=== PATIENT | female | born 1990 | race African-American/Black ===

== ENCOUNTER 2017-04-20 09:48 | Emergency (ER) | payer OTHER ==
[~2017-04-20] VITALS: Ht 160 cm; Wt 63.5 kg
[~2017-04-20 09:48] MED LIST: AZIT250T PO; CYCL10TA9 PO; DOXY-233 PO; DOXY100C42 PO; FAMO-119 PO; FRS325T PO; HYDR-1231 PO; HYDR-3714 PO; HYDR-757 PO; HYDR50TA76 PO; IBP600T1 PO; METR500T PO; NAPR-243 PO; NAPR500T4 PO; PENI500T PO; PRD20T PO; PRED-501 PO; TRAM50TA2 PO; TRM50T PO
--- OUTSIDE RECORDS SUMMARY | 2017-04-20 09:54 | XMS REPORT ---
Author ILEANA Peguero [facility] eClinicalWorks Address Unknown Phone Unavailable Care Team Providers Care Switchboard Wire Worker Helper Name Role Phone ILEANA BOYCE CP Unavailable Allergies, Adverse Reactions, Alerts Substance Reaction Event Type N.K.D.A. Info Not Available Non Drug Allergy Problems Problem Type Condition Code Onset Dates Condition Status Problem Screening for malignant neoplasm of the cervix V76.2 Active Problem Screening examination for venereal disease V74.5 Active Problem Special screening examination, human papillomavirus [HPV] V73.81 Active Problem Foreign body in nose 932 Active Assessment Chest pain, unspecified R07.9 Active Problem Unspecified vaginitis and vulvovaginitis 616.10 Active Problem Abdominal pain, generalized 789.07 Active Medications Medication Code System Code Instructions Start Date End Date Status Dosage Ibuprofen [facility] [address]-06 800 MG Orally Three times a day 1 tablet Iron [facility] [address]-62 325 mg (65 mg iron) June 27, 2013 1 Tablet 1 time per day PredniSONE [facility] [address]-62 10 MG Orally Once a day Jan 25, 2015 Jan 30, 2015 1 tablet with food or milk Cyclobenzaprine HCl [facility] [address]-36 10 MG Orally Three times a day as needed for chest tightness and pain Jan 25, 2015 Feb 08, 2015 1 tablet Procedures Procedure Coding System Code Date Office Visit, Est Pt., Level 3 CPT-4 18823 Jan 25, 2015 ELECTROCARDIOGRAM, TRACING CPT-4 87316 Jan 25, 2015 Vital Signs Date/Time: Jan 25, 2015 Temperature 97.9 F Weight 132.4 lbs Height 71 in BMI 18.46 Index Blood Pressure Diastolic 72 mmHg Blood Pressure Systolic 130 mmHg Cardiac Monitoring Heart Rate 80 bpm Results Name Result Date Reference Range Unit Abnormality Flag EKG, TRACING (IN-HOUSE) Summary Purpose eClinicalWorks Submission
--- OUTSIDE RECORDS SUMMARY | 2017-04-20 09:54 | XMS REPORT ---
Author Author VASYL KLEIN [facility] eClinicalWorks Address Unknown Phone Unavailable Care Team Providers Care Overlock Operator Name Role Phone VASYL KLEIN Unavailable Allergies No Known Allergies Problems Problem Type Condition Code Onset Dates Condition Status Problem Abdominal pain, generalized R10.84 Active Medications Medication Code System Code Instructions Start Date End Date Status Dosage Diflucan [facility] [address]-82 150 MG Orally Once a day Apr 16, 2015 1 tablet Results No Known Results Summary Purpose eClinicalWorks Submission
--- OUTSIDE RECORDS SUMMARY | 2017-04-20 09:55 | XMS REPORT ---
Author Author VASYL KLEIN [facility] eClinicalWorks Address Unknown Phone Unavailable Care Team Providers Care Bias Binding Cutter Name Role Phone VASYL KLEIN Unavailable Allergies, Adverse Reactions, Alerts Substance Reaction Event Type N.K.D.A. Info Not Available Non Drug Allergy Problems Problem Type Condition Code Onset Dates Condition Status Assessment Pelvic pressure in female N94.89 Active Assessment Routine screening for STI (sexually transmitted infection) Z11.3 Active Assessment Dyspareunia N94.1 Active Assessment Encounter for screening for malignant neoplasm of cervix Z12.4 Active Assessment Well woman exam Z01.419 Active Problem Abdominal pain, generalized R10.84 Active Assessment History of right oophorectomy Z98.89 Active Assessment Vaginal discharge N89.8 Active Assessment Tobacco use Z72.0 Active Assessment Left lower quadrant pain R10.32 Active Medications Medication Code System Code Instructions Start Date End Date Status Dosage Flagyl [facility] [address]-21 500 MG Orally 2 times a day Apr 11, 2015 Apr 18, 2015 1 tablet Iron [facility] [address]-57 325 mg (65 mg iron) June 27, 2013 1 Tablet 1 time per day Procedures Procedure Coding System Code Date No Charge CPT-4 04227 Apr 11, 2015 TRICHOMONAS ASSAY W/OPTIC CPT-4 93697 Apr 11, 2015 SPECIMEN HANDLING CPT-4 70699 Apr 11, 2015 URINE TEST CPT-4 07141 Apr 11, 2015 CULTURE, BACTERIA, OTHER CPT-4 71309 Apr 11, 2015 Preventive Care Est Pt. Age 18-39 CPT-4 33063 Apr 11, 2015 URINALYSIS, AUTO, W/O SCOPE CPT-4 12204 Apr 11, 2015 Vital Signs Date/Time: Apr 11, 2015 Temperature 97.2 F Weight 135.4 lbs Height 71 in BMI 18.88 Index Blood Pressure Diastolic 70 mmHg Blood Pressure Systolic 118 mmHg Cardiac Monitoring Heart Rate 90 bpm Results Name Result Date Reference Range Unit Abnormality Flag UA LONG DIP (IN HOUSE) ----pH >=9.0 20150411 ----BLO negative 20150411 ----Clarity clear 20150411 ----Color yellow 20150411 ----Odor no 20150411 ----GLU negative 20150411 ----MORGAN negative 20150411 ----BRYON negative 20150411 ----NIT negative 20150411 ----KET negative 20150411 ----Lot # [id number] ----SG 1.015 20150411 ----URO 0.2 20150411 ----Exp date 20150411 ----Protein negative 20150411 TEST, URINE (IN HOUSE) ----RESULTS negative 20150411 ----Lot # [id number] ----Control + 20150411 ----Exp date 20150411 TRICHOMONAS (IN HOUSE) ----Exp date 20150411 ----Control + 20150411 ----Lot # [id number] ----TRICHOMONAS negative 20150411 Summary Purpose eClinicalWorks Submission
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
--- NOTE | 2017-04-20 10:19 | ED GI ---
General Chief Complaint: Abdominal/GI Problems Stated Complaint: BODY ACHES/N Nursing Triage Note: ARRIVED VIA AMB TO ROOM 08. COMPLAINS OF N/D FOR ABOUT A WEEK ALONG WITH SEVERE BODY ACHES. Sepsis Screen: No Definite Risk Source of Information: Patient Exam Limitations: No Limitations History of Present Illness Date Seen by Provider: Apr 20, 2017 Time Seen By Provider: 10:19 Initial Comments This 27-year-old black female presents with a complaint of diarrhea for the last 4 days with associated body aches and myalgias. The patient denies associated black or tarry stools. She has had no associated dysuria. She denies flank pain. Patient has had nausea intermittently but no vomiting. Past medical history of significance and includes a right oophorectomy for an ovarian infection. The patient is a black female. She is on her period currently.. She notes that the number of her coworkers have been ill at work Allergies and Home Medications Allergies Coded Allergies: No Known Drug Allergies (Unverified , 09/16/12) Review of Systems Constitutional: fever, malaise EENTM: No Blurred Vision Respiratory: Denies Cough Cardiovascular: Denies Chest Pain Gastrointestinal: Denies Abdominal Pain, Diarrhea, Nausea, Denies Vomiting Genitourinary: Denies Burning, Denies Frequency, Denies Flank Pain Musculoskeletal: back pain, joint pain, muscle pain Skin: No rash Psychiatric/Neurological: No Symptoms Reported Endocrine: No Symptoms Reported Hematologic/Lymphatic: No Symptoms Reported Past Gxniqhf-Wnexbn-Ptfqrm Hx Patient Social History Alcohol Use: Denies Use Recreational Drug Use: No Smoking Status: Current Everyday Smoker Recent Foreign Travel: No Contact w/Someone Who Travel: No Recent Infectious Disease Expo: No Recent Hopitalizations: No Immunizations Up To Date Tetanus Booster (TDap): Less than 5yrs Date of Influenza Vaccine: Dec 28, 2014 Seasonal Allergies Seasonal Allergies: No Surgeries History of Surgeries: Yes (diag lap with right Salpingo-Oopherectomy with lysis adhesions) Respiratory History of Respiratory Disorde: No Cardiovascular History of Cardiac Disorders: No Neurological History of Neurological Disord: No Reproductive System Hx Reproductive Disorders: Yes (abscess of right SO) Sexually Transmitted Disease: Yes (chlamydia at 18) HIV/AIDS: No 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 Gastrointestinal History of Gastrointestinal Di: No Musculoskeletal History of Musculoskeletal Dis: No Endocrine History of Endocrine Disorders: No Cancer History of Cancer: No Psychosocial History of Psychiatric Problem: No Integumentary History of Skin or Integumenta: No Blood Transfusions History of Blood Disorders: No Adverse Reaction to a Blood Tr: No Reviewed Nursing Assessment Reviewed/Agree w Nursing PMH: Yes Family Medical History Significant Family History: Cancer Physical Exam Vital Signs VS - Last 72 Hours, by Label 04/20/17 09:51 Temp 98.5 Pulse 80 Resp 16 B/P (MAP) 129/83 (98) Pulse Ox 100 Capillary Refill : Less Than 3 Seconds General Appearance: WD/WN, mild distress HEENT: normal ENT inspection Neck: full range of motion, supple, normal inspection Respiratory: lungs clear, normal breath sounds, no respiratory distress Cardiovascular: normal peripheral pulses, regular rate, rhythm Gastrointestinal: normal bowel sounds, non tender, soft Extremities: normal range of motion, non-tender, normal inspection Back: normal inspection, no CVA tenderness Neurologic/Psychiatric: no motor/sensory deficits, alert, normal mood/affect Skin: normal color, warm/dry Progress/Results/Core Measures Results/Orders Lab Results Laboratory Tests Test 04/20/17 10:27 04/20/17 10:28 Range/Units White Blood Count 11.0 4.3-11.0 10^3/uL Red Blood Count 4.79 4.35-5.85 10^6/uL Hemoglobin 12.9 11.5-16.0 G/DL Hematocrit 39 35-52 % Mean Corpuscular Volume 81 80-99 FL Mean Corpuscular Hemoglobin 27 25-34 PG Mean Corpuscular Hemoglobin Concent 33 32-36 G/DL Red Cell Distribution Width 15.1 H 10.0-14.5 % Platelet Count 347 130-400 10^3/uL Mean Platelet Volume 10.7 H 7.4-10.4 FL Neutrophils (%) (Auto) 67 42-75 % Lymphocytes (%) (Auto) 20 12-44 % Monocytes (%) (Auto) 13 H 0-12 % Eosinophils (%) (Auto) 0 0-10 % Basophils (%) (Auto) 0 0-10 % Neutrophils # (Auto) 7.4 1.8-7.8 X 10^3 Lymphocytes # (Auto) 2.2 1.0-4.0 X 10^3 Monocytes # (Auto) 1.4 H 0.0-1.0 X 10^3 Eosinophils # (Auto) 0.0 0.0-0.3 10^3/uL Basophils # (Auto) 0.0 0.0-0.1 10^3/uL Sodium Level 139 135-145 MMOL/L Potassium Level 4.0 3.6-5.0 MMOL/L Chloride Level 106 98-107 MMOL/L Carbon Dioxide Level 22 21-32 MMOL/L Anion Gap 11 5-14 MMOL/L Blood Urea Nitrogen 8 7-18 MG/DL Creatinine 0.65 0.60-1.30 MG/DL Estimat Glomerular Filtration Rate > 60 BUN/Creatinine Ratio 12 Glucose Level 97 70-105 MG/DL Calcium Level 8.8 8.5-10.1 MG/DL Total Bilirubin 0.2 0.1-1.0 MG/DL Aspartate Amino Transf (AST/SGOT) 19 5-34 U/L Alanine Aminotransferase (ALT/SGPT) 15 0-55 U/L Alkaline Phosphatase 88 40-136 U/L Total Protein 7.4 6.4-8.2 GM/DL Albumin 3.9 3.2-4.5 GM/DL Lipase 10 8-78 U/L Urine Color YELLOW Urine Clarity CLEAR Urine pH 6 5-9 Urine Specific [place] 1.020 1.016-1.022 Urine Protein 1+ H NEGATIVE Urine Glucose (UA) NEGATIVE NEGATIVE Urine Ketones NEGATIVE NEGATIVE Urine Nitrite NEGATIVE NEGATIVE Urine Bilirubin NEGATIVE NEGATIVE Urine Urobilinogen NORMAL NORMAL MG/DL Urine Leukocyte Esterase 1+ H NEGATIVE Urine RBC (Auto) 5+ H NEGATIVE Urine RBC >100 H /HPF Urine WBC 0-2 /HPF Urine Squamous Epithelial Cells 0-2 /HPF Urine Crystals NONE /LPF Urine Bacteria TRACE /HPF Urine Casts NONE /LPF Urine Mucus MODERATE H /LPF Urine Culture Indicated YES Micro Results Microbiology 04/20/17 Influenza Types A,B Antigen (ELIZABETH) - Final, Complete My Orders Orders - REYNA REYES MD Cbc With Automated Diff (04/20/17 10:08) Comprehensive Metabolic Panel (04/20/17 10:08) Ua Culture If Indicated (04/20/17 10:08) Lipase (04/20/17 10:08) Ns Iv 1000 Ml (Sodium Chloride 0.9%) (04/20/17 10:30) Ondansetron Injection (Zofran Injectio (04/20/17 10:30) Fentanyl Injection (Sublimaze Injection (04/20/17 10:30) Influenza A And B Antigens (04/20/17 10:17) Urine Culture (04/20/17 10:28) Ceftriaxone Injection (Rocephin Injectio (04/20/17 11:15) Medications Given in ED Current Medications Medications Dose Ordered Sig/Kai Route Start Time Stop Time Status Last Admin Dose Admin Ceftriaxone Sodium 2000 mg/ Dextrose/Water 50 ml @ 100 mls/hr ONCE ONCE IV 04/20/17 11:15 04/20/17 11:44 DC 04/20/17 11:30 100 MLS/HR Fentanyl Citrate 50 mcg ONCE ONCE IVP 04/20/17 10:30 04/20/17 10:31 DC 04/20/17 10:25 50 MCG Ondansetron HCl 4 mg ONCE ONCE IVP 04/20/17 10:30 04/20/17 10:31 DC 04/20/17 10:25 4 MG Vital Signs/I&O Vital Sign - Last 12Hours 04/20/17 09:51 Temp 98.5 Pulse 80 Resp 16 B/P (MAP) 129/83 (98) Pulse Ox 100 Blood Pressure Mean: 98 Progress Note : Time: 11:48 Progress Note The patient was treated with IV fluids, Zofran IV, and fentanyl IV. The patient was significantly improved with this treatment regimen. Laboratory evaluation demonstrated a normal white count, lipase, and complete metabolic panel. There was evidence on the patient's urinalysis of a UTI. Patient received 2 g Rocephin IV for the possible early pyelonephritis. Departure Impression Impression: Primary Impression: Urinary tract infection Additional Impression: Diarrhea Disposition: 01 HOME, SELF-CARE Condition: Improved Departure-Patient Inst. Decision time for Depature: 11:50 Referrals: [facility]/SHERIE TAY,LOCAL PHYSICIAN (PCP) Primary Care Physician Patient Instructions: Diarrhea in Adolescents and Adults, Urinary Tract Infection, Adult (DC) Add. Discharge Instructions: Bactrim DS, Vicodin, and Zofran as prescribed. Clear liquids. Rest at home. Close follow up with [facility]. Return if any problems. All discharge instructions reviewed with patient and/or family. Voiced understanding. REYNA REYES MD Apr 20, 2017 10:18
[2017-04-20] MEDS ORDERED: fentaNYL INJECTION 100 MCG/2 ML AMP IVP ONE (10:30)
[2017-04-20] MEDS ORDERED: NS IV 1000 ML 1,000 ML IV SCH (10:30)
[2017-04-20] MEDS ORDERED: ONDANSETRON 4 MG/2 ML (SDV) Z0FRAN IVP ONE (10:30)
[2017-04-20 10:40] LABS: BILIRUBIN,URINE NEGATIVE (NEGATIVE); CLARITY,URINE CLEAR; COLOR,URINE YELLOW; GLUCOSE, URINE (UA) NEGATIVE (NEGATIVE); KETONES,URINE NEGATIVE (NEGATIVE); LEUKOCYTE ESTERASE ,URINE 1+ (NEGATIVE); NITRITE,URINE NEGATIVE (NEGATIVE); PH,URINE 6 (5-9); PROTEIN,URINE 1+ (NEGATIVE); UROBILINOGEN,URINE NORMAL (NORMAL)
[2017-04-20 10:40] LABS: BASOPHILS % (AUTO) 0 % (0-10); EOSINOPHILS % (AUTO) 0 % (0-10); HEMATOCRIT 39 % (35-52); HEMOGLOBIN 12.9 G/DL (11.5-16.0); LYMPHOCYTES # (AUTO) 2.2 X 10^3 (1.0-4.0); LYMPHOCYTES % (AUTO) 20 % (12-44); MEAN CORPUSCULAR HEMOGLOBIN 27 PG (25-34); MEAN CORPUSCULAR HGB CONC 33 G/DL (32-36); MEAN CORPUSCULAR VOLUME 81 FL (80-99); MEAN PLATELET VOLUME 10.7 FL (7.4-10.4); MONOCYTES # (AUTO) 1.4 X 10^3 (0.0-1.0); MONOCYTES % (AUTO) 13 % (0-12); NEUTROPHILS # (AUTO) 7.4 X 10^3 (1.8-7.8); NEUTROPHILS % (AUTO) 67 % (42-75); PLATELET COUNT 347 10^3/uL (130-400); RED BLOOD COUNT 4.79 10^6/uL (4.35-5.85); RED CELL DISTRIBUTION WIDTH 15.1 % (10.0-14.5)
[2017-04-20 10:50] LABS: BACTERIA,URINE TRACE /HPF; RBC,URINE >100 /HPF; SQUAMOUS EPITHELIAL CELL,UR 0-2 /HPF; WBC,URINE 0-2 /HPF
[2017-04-20 11:05] LABS: ALANINE AMINOTRANSFERASE 15 U/L (0-55); ALBUMIN 3.9 GM/DL (3.2-4.5); ALKALINE PHOSPHATASE 88 U/L (40-136); BILIRUBIN,TOTAL 0.2 MG/DL (0.1-1.0); BUN/CREATININE RATIO 12; CALCIUM 8.8 MG/DL (8.5-10.1); CARBON DIOXIDE 22 MMOL/L (21-32); CHLORIDE 106 MMOL/L (98-107); CREATININE SERUM 0.65 MG/DL (0.60-1.30); GFR ESTIMATED > 60; GLUCOSE 97 MG/DL (70-105); LIPASE 10 U/L (8-78); SODIUM 139 MMOL/L (135-145); TOTAL PROTEIN 7.4 GM/DL (6.4-8.2)
[2017-04-20] MEDS ORDERED: cefTRIAXone INJECTION 2,000 MG in D5W 50 ML IVPB SOLUTION 50 ML IV ONE (11:15)
[2017-04-20 12:17] VITALS: BP 129/83
== END 2017-04-20 12:17 | disposition home or self-care (01) ==
LOC: EDUNIT# 09:48 → ER 09:50
DX: N39.0 Urinary tract infection, site not specified (principal); R19.7 Diarrhea, unspecified; F17.200 Nicotine dependence, unspecified, uncomplicated; Z86.19 Personal history of other infectious and parasitic diseases; Z90.721 Acquired absence of ovaries, unilateral
CPT/HCPCS: 36415; 80053; 81000; 83690; 85025; 87088; 87804; 96361; 96365; 96375